=== PATIENT | female | born 1970 | race Caucasian/White ===

== ENCOUNTER 2017-01-09 17:33 | Emergency (ER) | payer OTHER ==
[2017-01-09] MEDS ORDERED: Sodium Chloride 0.9% 1000 ML 1,000 ML IV SCH ×2 (17:45→23:15)
--- NOTE | 2017-01-09 17:50 | ERPHSYRPT ---
- History of Present Illness Time Seen by Provider: 01/09/17 17:36 Source: family (), EMS Physician History: CC: unable to speak Hx: 46 y/o patient of Dr Briseno (neurology). She has hx of remote stroke causing left sided weakness as well as AICD. She has hx of 6 months intermittent spells in which she can not speak. These usually last a few minutes. She has had extensive workup thru [facility] including home EEG monitoring. No etiology identified. She had recent vomiting and her had diarrhea. Last night she was tired and she took her tizanidine. She had not taken her meds for a few days. Later in night she had beginning of one of her typical spells. It did not go away as usual. It continues this evening so called EMS. She is alert, no jerking, unable to form words. Seems to know what is going on and is able to move as usual. No fall or injury. No fever or chills. Timing/Duration: yesterday (evening) Severity: moderate Allergies/Adverse Reactions: Latex, Natural Rubber Allergy (Verified 01/09/17 19:08) venom-honey bee [bee venom (honey bee)] Allergy (Verified 01/09/17 19:08) Home Medications: Aspirin 81 gm Chew [Baby Aspirin 81 mg Chew] 81 mg PO DAILY 09/21/13 [ History] Carvedilol 12.5 mg [Coreg 12.5 mg] 25 mg PO BID 09/21/13 [History] Clopidogrel Bisulfate 75 mg [PLAVIX 75 MG Tablet] 75 mg PO DAILY 09/21/13 [History] Lisinopril 10 mg [Zestril 10 MG] 10 mg PO DAILY 09/21/13 [History] Tizanidine HCl 4 mg [Zanaflex 4 MG] 4 mg PO UD 09/11/16 [History] Topiramate 100 mg [Topamax 100 MG] 100 mg PO HS 09/11/16 [History] Cholecalciferol (Vitamin D3) [Vitamin D3] 5,000 unit PO DAILY 01/09/17 [History] Hx Tetanus, Diphtheria Vaccination/Date Given: Yes (1991) Hx Influenza Vaccination/Date Given: Yes (2011) Hx Pneumococcal Vaccination/Date Given: No - Review of Systems Constitutional: No Fever, No Chills Eyes: No Vision Changes Respiratory: No Cough, No Cyanosis Cardiac: Edema Abdominal/Gastrointestinal: Nausea, Vomiting All Other Systems: Unable due to condition - Past Medical History Pertinent Past Medical History: Yes Neurological History: Stroke ENT History: No Pertinent History Cardiac History: No Pertinent History Respiratory History: No Pertinent History Endocrine Medical History: No Pertinent History Musculoskeletal History: No Pertinent History GI Medical History: No Pertinent History Psycho-Social History: No Pertinent History Female Reproductive Disorders: No Pertinent History - Past Surgical History Past Surgical History: Yes Cardiac: Internal Defibrillator Female Surgical History: Section, Tubal Ligation - Social History Smoking Status: Former smoker Exposure to second hand smoke: Yes Drug Use: none Patient Lives Alone: No - Female History Hx Now: No - Nursing Vital Signs Nursing Vital Signs: Initial Vital Signs Temperature 99.2 F Temperature Source Rectal Pulse Rate 76 Respiratory Rate 24 Blood Pressure [] 111/59 Pain Intensity 0 - Physical Exam General Appearance: alert Eye Exam: PERRL/EOMI Cardiovascular Exam: regular rate/rhythm Gastrointestinal/Abdomen Exam: soft, No tenderness, No distention Neurologic Exam: alert, cooperative, other (does not form words, dry secretions in mouth, left sided arm and leg weakness with mild contractures, she moves right arm and leg, she is keenly alert, follows all commands, no tremor, able to communicate with hand squeeze and responds to questions appopriately regarding orientation. Denes pain. ) Skin Exam: pale, other (cool) Procedures - Central Line Central Line Lumen: triple Lumen Size: 7 Japanese Central Line Procedure: chlorahexadine prep, sterile drapes applied (full body) , sterile dressing applied, Aseptic Technique, Seldinger Technique Central Line Postion: femoral (R) Anesthesia: 1% Lidocaine cc's of anesthesia: 3 Ultrasound Guided Placement: Yes Complications: none Central Line Post Position: sutured, good blood return - Course Nursing assessment & vital signs reviewed: Yes EKG Interpreted by Me: RATE (87 pacemaker rhythm) - Radiology Exams cxr X-ray Interpretation: Reviewed by me (AICD, no pneumonia) - CT Exams head CT Interpretation: Tele-radiologist Report (stable old stroke, no acute changes) Ordered Tests: Active Orders 24 hr Category Date Time Status Human Resources Hr Generalist STAT Care 04/04/17 17:36 Active Cath for Specimen-Straight STAT Care 01/09/17 17:36 Active EKG-ER Only STAT Care 01/09/17 17:36 Active IV Insertion STAT Care 01/09/17 17:36 Active Pulse Oximetry (ED) STAT Care 01/09/17 17:36 Active CHEST 1 VIEW (PORTABLE) Stat Exams 01/09/17 17:37 Taken HEAD WITHOUT CONTRAST [CT] Stat Exams 01/09/17 17:37 Taken CBC W DIFF Stat Lab 01/09/17 18:53 Completed CK-Creatinine Phosphokinase Stat Lab 01/09/17 18:53 Completed CMP Stat Lab 01/09/17 18:53 Completed Ethyl Alcohol,Urine Stat Lab 01/09/17 19:52 Completed Lactic Acid Urgent Lab 01/09/17 17:36 Completed Lactic Acid Urgent Lab 01/09/17 20:37 Completed MAGNESIUM Stat Lab 01/09/17 18:53 Completed Manual Differential NC Stat Lab 01/09/17 18:53 Completed UA W/ MICROSCOPIC Stat Lab 01/09/17 19:52 Completed Urine Triage Profile Stat Lab 01/09/17 19:52 Completed VENOUS BLOOD GAS Stat Lab 01/09/17 21:10 Completed VENOUS BLOOD GAS Urgent Lab 01/09/17 17:36 Completed Medication Summary Generic Name Dose Route Start Last Admin Trade Name Freq PRN Reason Stop Dose Admin Sodium Chloride 1,000 mls @ 100 mls/hr 01/09/17 17:45 Sodium Chloride 0.9% 1000 Ml IV 02/08/17 17:44 .Q10H LETICIA Discontinued Medications Generic Name Dose Route Start Last Admin Trade Name Freq PRN Reason Stop Dose Admin Ceftriaxone Sodium/Dextrose 50 mls @ 100 mls/hr 01/09/17 19:05 Rocephin 1 Gm-D5w 50 Ml Bag IV 01/09/17 19:34 STAT ONE Sodium Chloride 1,000 mls @ 999 mls/hr 01/09/17 19:47 01/09/17 20:57 Sodium Chloride 0.9% 1000 Ml IV 01/09/17 20:47 999 mls/hr .Q1H1M STA Administration Ceftriaxone Sodium/Dextrose Confirm 01/09/17 19:47 Rocephin 1 Gm-D5w 50 Ml Bag Administered 01/09/17 19:48 Dose 50 mls @ ud IV .STK-MED ONE Sodium Chloride 1,000 mls @ 999 mls/hr 01/09/17 20:37 01/09/17 21:13 Sodium Chloride 0.9% 1000 Ml IV 01/09/17 21:37 999 mls/hr .Q1H1M STA Administration Sodium Chloride 1,000 mls @ 999 mls/hr 01/09/17 20:37 Sodium Chloride 0.9% 1000 Ml IV 01/09/17 21:37 .Q1H1M STA Aztreonam 100 mls @ 100 mls/hr 01/09/17 20:50 01/09/17 21:14 Azactam 1 Gm/100 Ml D5w IV 01/09/17 21:49 100 mls/hr STAT ONE Administration Lorazepam 1 mg 01/09/17 18:51 Ativan 2 Mg/1 Ml Vial IV 01/09/17 18:52 STAT ONE Lab/Rad Data: Laboratory Result Diagrams 01/09/17 18:53 01/09/17 18:53 Laboratory Results 01/09/17 01/09/17 01/09/17 Range/Units 21:10 20:37 19:52 WBC (4.0-10.5) K/mm3 RBC (4.1-5.4) M/mm3 Hgb (12.0-16.0) gm/dl Hct (35-47) % MCV (78-100) fl MCH (26-32) pg MCHC (32-36) g/dl RDW (11.5-14.0) % Plt Count (150-450) K/mm3 MPV (6-9.5) fl Segmented Neutrophils (36.0-66.0) % Lymphocytes (Manual) (24-44) % Monocytes (Manual) (0.0-12.0) % Eosinophils (Manual) (0.00-3.0) % Differential Comment Platelet Estimate (NORMAL) Polychromasia Anisocytosis VBG pH 7.43 H (7.32-7.42) VBG pCO2 at Pat Temp 42 (42-55) mm/Hg VBG pO2 at Pat Temp 31 (25-40) mm/Hg VBG HCO3 27.9 (22-28) meq/L VBG O2 Sat (Rocky) 66.6 L (95-100) VBG Base Excess 3.2 H (-2.0-2.0) VBG Hemoglobin 12.5 VBG Carboxyhemoglobin 2.9 (0.0-6.9) % T HGB POC Potassium 3.4 L (3.5-5.1) Sodium (136-145) mEq/L Potassium (3.5-5.1) mEq/L Chloride (98-107) mEq/L Carbon Dioxide (21-32) mEq/L Anion Gap (5-15) MEQ/L BUN (9-20) mg/dL Creatinine (0.55-1.30) mg/dl Estimated GFR ML/MIN Glucose (70-110) MG/DL Lactic Acid 1.3 (0.4-2.0) Calcium (8.5-10.1) mg/dL Magnesium (1.8-2.4) mg/dL Total Bilirubin (0.2-1.0) mg/dL AST (15-37) U/L ALT (12-78) U/L Alkaline Phosphatase (46-116) U/L Creatine Kinase (26-192) U/L Serum Total Protein (6.4-8.2) gm/dL Albumin (3.4-5.0) g/dL Ur Collection Type Urine Color (YELLOW) Urine Appearance (CLEAR) Urine pH (5-6) Ur Specific Chelsea (1.005-1.025) Urine Protein (Negative) Urine Glucose (UA) (NEGATIVE) mg/dL Urine Ketones (NEGATIVE) Urine Nitrite (NEGATIVE) Urine Bilirubin (NEGATIVE) Urine Urobilinogen (0-1) mg/dL Urine WBC (Auto) (NEGATIVE) Urine RBC (Auto) (0-5) Reinaldo/ul Urine Microscopic RBC (0-2) /HPF Urine Microscopic WBC (0-5) /HPF Ur Epithelial Cells (FEW) /HPF Amorphous Crystals (NEGATIVE) /HPF Urine Bacteria (NEGATIVE) /HPF Urine Mucus (NEGATIVE) /HPF Urine Opiates Level NEG. (NEGATIVE) Ur Methadone NEG. (NEGATIVE) Urine Barbiturates NEG. (NEGATIVE) Ur Phencyclidine (PCP) NEG. (NEGATIVE) Urine Amphetamine NEG. (NEGATIVE) U Benzodiazepine Level NEG. (NEGATIVE) Urine Cocaine NEG. (NEGATIVE) Urine Marijuana (THC) NEG. (NEGATIVE) Urine Ethyl Alcohol (0.00-20) mg/dl Specimen Received 0401/09/17 01/09/17 Range/Units 19:52 19:52 18:53 WBC (4.0-10.5) K/mm3 RBC (4.1-5.4) M/mm3 Hgb (12.0-16.0) gm/dl Hct (35-47) % MCV (78-100) fl MCH (26-32) pg MCHC (32-36) g/dl RDW (11.5-14.0) % Plt Count (150-450) K/mm3 MPV (6-9.5) fl Segmented Neutrophils (36.0-66.0) % Lymphocytes (Manual) (24-44) % Monocytes (Manual) (0.0-12.0) % Eosinophils (Manual) (0.00-3.0) % Differential Comment Platelet Estimate (NORMAL) Polychromasia Anisocytosis VBG pH (7.32-7.42) VBG pCO2 at Pat Temp (42-55) mm/Hg VBG pO2 at Pat Temp (25-40) mm/Hg VBG HCO3 (22-28) meq/L VBG O2 Sat (Rocky) (95-100) VBG Base Excess (-2.0-2.0) VBG Hemoglobin VBG Carboxyhemoglobin (0.0-6.9) % T HGB POC Potassium (3.5-5.1) Sodium 141 (136-145) mEq/L Potassium 4.0 (3.5-5.1) mEq/L Chloride 103 (98-107) mEq/L Carbon Dioxide 28.0 (21-32) mEq/L Anion Gap 14.1 (5-15) MEQ/L BUN 33 H (9-20) mg/dL Creatinine 1.89 H (0.55-1.30) mg/dl Estimated GFR 30 ML/MIN Glucose 96 (70-110) MG/DL Lactic Acid (0.4-2.0) Calcium 10.1 (8.5-10.1) mg/dL Magnesium 2.0 (1.8-2.4) mg/dL Total Bilirubin 1.0 (0.2-1.0) mg/dL AST 53 H (15-37) U/L ALT 39 (12-78) U/L Alkaline Phosphatase 108 (46-116) U/L Creatine Kinase 363 H (26-192) U/L Serum Total Protein 7.3 (6.4-8.2) gm/dL Albumin 2.9 L (3.4-5.0) g/dL Ur Collection Type CATH Urine Color DARK YELLOW (YELLOW) Urine Appearance CLOUDY (CLEAR) Urine pH 6.0 6.0 (5-6) Ur Specific Chelsea 1.015 (1.005-1.025) Urine Protein 100 (Negative) Urine Glucose (UA) NEGATIVE (NEGATIVE) mg/dL Urine Ketones NEGATIVE (NEGATIVE) Urine Nitrite POSITIVE (NEGATIVE) Urine Bilirubin SMALL (NEGATIVE) Urine Urobilinogen 1 (0-1) mg/dL Urine WBC (Auto) LARGE (NEGATIVE) Urine RBC (Auto) LARGE (0-5) Reinaldo/ul Urine Microscopic RBC >100 (0-2) /HPF Urine Microscopic WBC >100 (0-5) /HPF Ur Epithelial Cells MODERATE (FEW) /HPF Amorphous Crystals FEW (NEGATIVE) /HPF Urine Bacteria PACKED (NEGATIVE) /HPF Urine Mucus MODERATE (NEGATIVE) /HPF Urine Opiates Level (NEGATIVE) Ur Methadone (NEGATIVE) Urine Barbiturates (NEGATIVE) Ur Phencyclidine (PCP) (NEGATIVE) Urine Amphetamine (NEGATIVE) U Benzodiazepine Level (NEGATIVE) Urine Cocaine (NEGATIVE) Urine Marijuana (THC) (NEGATIVE) Urine Ethyl Alcohol 3 (0.00-20) mg/dl Specimen Received 01/09/1701/09/17 01/09/17 Range/Units 18:53 17:36 WBC 23.7 H (4.0-10.5) K/mm3 RBC 4.78 (4.1-5.4) M/mm3 Hgb 13.5 (12.0-16.0) gm/dl Hct 41.6 (35-47) % MCV 87.0 (78-100) fl MCH 28.2 (26-32) pg MCHC 32.5 (32-36) g/dl RDW 16.3 H (11.5-14.0) % Plt Count 230 (150-450) K/mm3 MPV 10.8 H (6-9.5) fl Segmented Neutrophils 76 H (36.0-66.0) % Lymphocytes (Manual) 15 L (24-44) % Monocytes (Manual) 8 (0.0-12.0) % Eosinophils (Manual) 1 (0.00-3.0) % Differential Comment ABNORMAL Platelet Estimate NORMAL (NORMAL) Polychromasia 1+ Anisocytosis 1+ VBG pH 7.51 H (7.32-7.42) VBG pCO2 at Pat Temp 37 L (42-55) mm/Hg VBG pO2 at Pat Temp 35 (25-40) mm/Hg VBG HCO3 29.5 H* (22-28) meq/L VBG O2 Sat (Rocky) 73.8 L (95-100) VBG Base Excess 6.2 H (-2.0-2.0) VBG Hemoglobin 14.4 VBG Carboxyhemoglobin 4.4 (0.0-6.9) % T HGB POC Potassium 3.8 (3.5-5.1) Sodium (136-145) mEq/L Potassium (3.5-5.1) mEq/L Chloride (98-107) mEq/L Carbon Dioxide (21-32) mEq/L Anion Gap (5-15) MEQ/L BUN (9-20) mg/dL Creatinine (0.55-1.30) mg/dl Estimated GFR ML/MIN Glucose (70-110) MG/DL Lactic Acid 1.7 (0.4-2.0) Calcium (8.5-10.1) mg/dL Magnesium (1.8-2.4) mg/dL Total Bilirubin (0.2-1.0) mg/dL AST (15-37) U/L ALT (12-78) U/L Alkaline Phosphatase (46-116) U/L Creatine Kinase (26-192) U/L Serum Total Protein (6.4-8.2) gm/dL Albumin (3.4-5.0) g/dL Ur Collection Type Urine Color (YELLOW) Urine Appearance (CLEAR) Urine pH (5-6) Ur Specific Chelsea (1.005-1.025) Urine Protein (Negative) Urine Glucose (UA) (NEGATIVE) mg/dL Urine Ketones (NEGATIVE) Urine Nitrite (NEGATIVE) Urine Bilirubin (NEGATIVE) Urine Urobilinogen (0-1) mg/dL Urine WBC (Auto) (NEGATIVE) Urine RBC (Auto) (0-5) Reinaldo/ul Urine Microscopic RBC (0-2) /HPF Urine Microscopic WBC (0-5) /HPF Ur Epithelial Cells (FEW) /HPF Amorphous Crystals (NEGATIVE) /HPF Urine Bacteria (NEGATIVE) /HPF Urine Mucus (NEGATIVE) /HPF Urine Opiates Level (NEGATIVE) Ur Methadone (NEGATIVE) Urine Barbiturates (NEGATIVE) Ur Phencyclidine (PCP) (NEGATIVE) Urine Amphetamine (NEGATIVE) U Benzodiazepine Level (NEGATIVE) Urine Cocaine (NEGATIVE) Urine Marijuana (THC) (NEGATIVE) Urine Ethyl Alcohol (0.00-20) mg/dl Specimen Received - Progress Progress Note: 01/09/17 17:51 Testing ordered. Spoke to . Sent for [facility] old records. Paged Dr Rodriguez. ? TIA syndrome, seizure, dystonia. 01/09/17 18:57 Very difficult IV access. Nurse obtained IV in left breast area. Blood drawn right brachial artery using sono guidance. Poor venous targets. Spoke to Dr Rodriguez and she advised ok to try ativan. Appears nonemergent. Pt can be admitted at [facility] for neuro consult, MRI, EEG again. Pt and family desire [facility] for admission. 01/09/17 20:39 Pt had poor IV access. She had episodes of hypotension and some mottled skin. Right femoral line placed with permission from . IVF bolus in progress. LActic ok but she appears septic. Abtx started. Cultures sent. Will work on transfer to [facility]. 01/09/17 20:51 SEPSIS REASSESSMENT: HR 112 RR 24 BP 94/26 Sat 97% Temp 98.3 Ax. Pt alert, dysarthric but repsonds. Heart regular. Lungs diminished but clear. Skin mottled, pale and cool. Radial pulses thready and almost nonpalpable. DP pulse 1+. Called [facility] call to arrange transfer to hospitalist service at patient and family's request. 01/09/17 21:51 Spoke to [facility] [employer] Sarah Amador as no response from transfer center. There was some mix up about primary care provider. states primary doctor is Dr Anette Robb. She is attempting to contact hospitalist. 01/09/17 22:11 Spoke to Sarah Amador. She conferenced with hospitalist Dr Membreno. Spoke to Dr Membreno who accepts transfer to [facility]. 01/09/17 22:14 Current BP 109/70. Counseled pt/family regarding: lab results, diagnosis, need for follow-up, rad results - Departure Time of Disposition: 22:13 Departure Disposition: Transfer ([facility]) Clinical Impression: Dysarthria, Hx stroke, Septic shock Condition: Serious Critical Care Time: Yes Critical Care Time(excluding separately billable procedures): 75-104 minutes Referrals: ANETTE ROBB MD [Primary Care Provider] -
[2017-01-09] MEDS ORDERED: Sodium Chloride 0.9% 1000 ML 1,000 ML ONE ×4 (18:45→21:03)
[2017-01-09] MEDS ORDERED: Ativan 2 MG/1 ML VIAL IV ONE (18:51)
[2017-01-09 18:57] LABS: Lactic Acid 1.7 (0.4-2.0); VBG BASE EXCESS 6.2 (-2.0-2.0); VBG CARBOXYHEMOGLOBIN 4.4 % T HGB (0.0-6.9); VBG HCO3- 29.5 meq/L (22-28); VBG HEMOGLOBIN 14.4; VBG O2 SATURATION 73.8 (95-100); VBG POTASSIUM 3.8 (3.5-5.1); VBG pH 7.51 (7.32-7.42)
[2017-01-09 18:59] LABS: Mean Corpuscular Hemoglobin 28.2 pg (26-32); Mean Platelet Volume 10.8 fl (6-9.5); Platelet Count 230 K/mm3 (150-450); Red Blood Count 4.78 M/mm3 (4.1-5.4); Red Cell Distribution Width 16.3 % (11.5-14.0); White Blood Count 23.7 K/mm3 (4.0-10.5)
[2017-01-09] MEDS ORDERED: ROCEPHIN 1 Gm-D5w 50 ml Bag** 50 ML IV ONE ×2 (19:05→19:47)
[2017-01-09 19:22] LABS: ALBUMIN 2.9 g/dL (3.4-5.0); ANION GAP 14.1 MEQ/L (5-15); Total Protein 7.3 gm/dL (6.4-8.2)
[2017-01-09] MEDS ORDERED: Sodium Chloride 0.9% 1000 ML 1,000 ML IV STA ×4 (19:47→23:02)
[2017-01-09 19:52] LABS: Eosinophil 1 % (0.00-3.0); Total Cells Counted 100
[2017-01-09 19:53] LABS: ANISOCYTOSIS 1+; Platelet Estimate NORMAL (NORMAL); Polychromasia 1+
[2017-01-09 20:04] LABS: COMPLETE URINE MICROSCOPIC? YES; Collection Type CATH
[2017-01-09 20:05] LABS: Bacteria PACKED /HPF (NEGATIVE); Epithelial Cells MODERATE /HPF (FEW); Mucus MODERATE /HPF (NEGATIVE); WBC >100 /HPF (0-5)
[2017-01-09] MEDS ORDERED: Azactam 1 GM/100 ML D5W 100 ML IV ONE (20:50)
[2017-01-09 21:18] LABS: VBG BASE EXCESS 3.2 (-2.0-2.0); VBG CARBOXYHEMOGLOBIN 2.9 % T HGB (0.0-6.9); VBG HCO3- 27.9 meq/L (22-28); VBG HEMOGLOBIN 12.5; VBG O2 SATURATION 66.6 (95-100); VBG POTASSIUM 3.4 (3.5-5.1); VBG pH 7.43 (7.32-7.42)
[2017-01-09] MEDS ORDERED: Sodium Chloride 0.9% 1000 ML 2,000 ML ONE (22:16)
[2017-01-09 23:38] VITALS: BP 91/52; PULSE 102; O2SAT 95
--- NOTE | 2017-01-10 08:39 | XRAY ---
Indication: Slurred speech, aphasia, and dilated pupils. Sepsis. Multiple contiguous axial images obtained through the head without contrast. Comparison: September 21, 2016. Stable large old right cerebral infarct and left posterior centrum semi-ovale degenerative micro-ischemia. Again no acute intracranial hemorrhage, hydrocephalus, or mass effect. Fourth ventricle is midline. Bony calvarium intact. Visualized paranasal sinuses and mastoid air cells are pneumatized and clear. Impression: 1. No new/acute intracranial abnormalities. 2. Stable old right cerebral hemispheric infarct and degenerative micro-ischemia. CT DI 59.47
--- NOTE | 2017-01-10 08:58 | XRAY ---
Indication: A fascia. Possible sepsis. Comparison: None Portable chest is clear. Heart is not enlarged with presence of a left-sided AICD. Vascularity normal. Bony thorax intact. Impression: Radiographically nonacute chest.
== END 2017-01-10 00:40 | disposition short-term general hospital (02) ==
LOC: ED 17:33
DX: R47.1 Dysarthria and anarthria (principal); R65.21 Severe sepsis with septic shock; Z86.73 Personal history of transient ischemic attack (TIA), and cerebral infarction without residual deficits; I69.354 Hemiplegia and hemiparesis following cerebral infarction affecting left non-dominant side; Z79.899 Other long term (current) drug therapy
CPT/HCPCS: 36000; 36415; 51702; 70450; 71010; 80053; 80307; 80320; 81000; 82550; 82805; 83605; 83735; 83986; 85025; 93005; 93041; 96360; 96361; 96365; 96367; 99285; 99291; 99292; J0696; P9612

== ENCOUNTER 2017-05-16 14:43 | Emergency (ER) | payer OTHER ==
--- NOTE | 2017-05-16 15:14 | ERPHSYRPT ---
- History of Present Illness Time Seen by Provider: 05/16/17 15:08 Source: EMS Exam Limitations: clinical condition Patient Subjective Stated Complaint: Medics states "her called and stated she is confused. She has answered all of our questions correctly." Triage Nursing Assessment: Pt able to answer some questions questions but repeats herself. often. pt left side is weak. Pt Hx of 3 previous strokes. able to speak in full sentences. left facial droop as well. Physician History: The patient is a 46-year-old female brought in by ambulance from home. Ambulance reports that they were called because she was confused. The boyfriend told the ambulance crew that she may have UTI and needs to be seen. The patient has low mental functioning ability but does answer questions. Her boyfriend is not here at this time. The patient states that the boyfriend called the ambulance. She does not know why he called the ambulance. Her past medical history is significant for a stroke with left-sided upper extremity deficit. She has a Lewis catheter in place. She also has GERD, CHF, and headaches. Timing/Duration: today Severity: mild Modifying Factors: Improves With: nothing Associated Symptoms: denies symptoms Allergies/Adverse Reactions: Latex, Natural Rubber Allergy (Verified 05/16/17 15:08) venom-honey bee [bee venom (honey bee)] Allergy (Verified 05/16/17 15:08) Home Medications: Aspirin 81 gm Chew [Baby Aspirin 81 mg Chew] 81 mg PO DAILY 09/21/13 [ History] Carvedilol 12.5 mg [Coreg 12.5 mg] 25 mg PO BID 09/21/13 [History] Clopidogrel Bisulfate 75 mg [PLAVIX 75 MG Tablet] 75 mg PO DAILY 09/21/13 [History] Tizanidine HCl 4 mg [Zanaflex 4 MG] 4 mg PO UD 09/11/16 [History] Topiramate 100 mg [Topamax 100 MG] 100 mg PO HS 09/11/16 [History] Cholecalciferol (Vitamin D3) [Vitamin D3] 5,000 unit PO DAILY 01/09/17 [History] Baclofen 10 mg [Lioresal 10 mg] 10 mg PO TID 05/16/17 [History] Famotidine 20 mg [Pepcid 20 MG] 20 mg PO DAILY 05/16/17 [History] Imipramine HCl 50 mg PO HS 05/16/17 [History] Midodrine HCl 5 mg [Proamatine 5 mg] 5 mg PO TID 05/16/17 [History] Potassium Chloride 10 Meq Tab* [Klor Con 10 MEQ] 10 meq PO BID 05/16/17 [ History] Sodium Bicarbonate 650 mg PO BID 05/16/17 [History] Hx Tetanus, Diphtheria Vaccination/Date Given: Yes Hx Influenza Vaccination/Date Given: Yes Hx Pneumococcal Vaccination/Date Given: Yes Immunizations Up to Date: Yes - Review of Systems Constitutional: No Fever, No Chills Eyes: No Symptoms Ears, Nose, & Throat: No Symptoms Respiratory: No Cough, No Dyspnea Cardiac: No Chest Pain, No Edema, No Syncope Abdominal/Gastrointestinal: No Abdominal Pain, No Nausea, No Vomiting, No Diarrhea Genitourinary Symptoms: No Dysuria Musculoskeletal: No Back Pain, No Neck Pain Skin: No Rash Neurological: Other (confusion) Psychological: No Symptoms Endocrine: No Symptoms Hematologic/Lymphatic: No Symptoms Immunological/Allergic: No Symptoms All Other Systems: Reviewed and Negative - Past Medical History Pertinent Past Medical History: Yes Neurological History: Stroke ENT History: No Pertinent History Cardiac History: No Pertinent History Respiratory History: No Pertinent History Endocrine Medical History: No Pertinent History Musculoskeletal History: No Pertinent History GI Medical History: No Pertinent History Psycho-Social History: No Pertinent History Female Reproductive Disorders: No Pertinent History - Past Surgical History Past Surgical History: Yes Cardiac: Internal Defibrillator Female Surgical History: Section, Tubal Ligation - Social History Smoking Status: Never smoker Exposure to second hand smoke: No Drug Use: none Patient Lives Alone: No - Female History Hx Last Menstrual Period: unknown Hx Now: No - Nursing Vital Signs Nursing Vital Signs: Initial Vital Signs Temperature 97.9 F 05/16/17 14:44 Pulse Rate 74 05/16/17 14:44 Respiratory Rate 16 05/16/17 14:44 Blood Pressure 104/52 05/16/17 14:44 O2 Sat by Pulse Oximetry 94 L 05/16/17 14:44 Pain Scale Pain Intensity 0 - Physical Exam General Appearance: no apparent distress, alert Eye Exam: PERRL/EOMI (Examination of the eyes reveals the left pupil slightly larger than the right. Both pupils accommodate to light.), eyes nml inspection Ears, Nose, Throat Exam: normal ENT inspection, TMs normal, pharynx normal, moist mucous membranes Neck Exam: normal inspection, non-tender, supple, full range of motion Respiratory Exam: normal breath sounds, lungs clear, No respiratory distress Cardiovascular Exam: regular rate/rhythm, normal heart sounds, normal peripheral pulses Gastrointestinal/Abdomen Exam: soft, normal bowel sounds, No tenderness, No mass Pelvic Exam: not done Rectal Exam: not done Back Exam: normal inspection, normal range of motion, No CVA tenderness, No vertebral tenderness Extremity Exam: normal inspection, normal range of motion, pelvis stable Neurologic Exam: cooperative Skin Exam: normal color, warm, dry, No rash Lymphatic Exam: No adenopathy SpO2 Interpretation: normal SpO2: 94 Oxygen Delivery: Room Air - CT Exams Head CT Interpretation: Tele-radiologist Report, Other (No new infarct or acute intracranial bleed. Large right cerebral infarct, aging older infarct per Dr Bobby.) Ordered Tests: Active Orders 24 hr Category Date Time Status IV Insertion STAT Care 05/16/17 15:14 Active HEAD WITHOUT CONTRAST [CT] Stat Exams 05/16/17 15:15 Completed CBC W DIFF Stat Lab 05/16/17 15:58 Completed CMP Stat Lab 05/16/17 15:58 Completed CULTURE,URINE Stat Lab 05/16/17 16:30 Received Lactic Acid Stat Lab 05/16/17 15:14 Completed Manual Differential NC Stat Lab 05/16/17 15:58 Completed PROTIME WITH INR Stat Lab 05/16/17 15:58 Completed UA W/ MICROSCOPIC Stat Lab 05/16/17 16:30 Completed Lab/Rad Data: Laboratory Result Diagrams 05/16/17 15:58 05/16/17 15:58 Laboratory Results 05/16/17 05/16/17 05/16/17 Range/Units 16:30 15:58 15:58 WBC (4.0-10.5) K/mm3 RBC (4.1-5.4) M/mm3 Hgb (12.0-16.0) gm/dl Hct (35-47) % MCV (78-100) fl MCH (26-32) pg MCHC (32-36) g/dl RDW (11.5-14.0) % Plt Count (150-450) K/mm3 MPV (6-9.5) fl Segmented Neutrophils (36.0-66.0) % Lymphocytes (Manual) (24-44) % Monocytes (Manual) (0.0-12.0) % Eosinophils (Manual) (0.00-3.0) % Differential Comment Platelet Estimate (NORMAL) INR 1.18 (0.8-3.0) Sodium 143 (136-145) mEq/L Potassium 3.6 (3.5-5.1) mEq/L Chloride 107 (98-107) mEq/L Carbon Dioxide 23.7 (21-32) mEq/L Anion Gap 15.9 H (5-15) MEQ/L BUN 22 H (9-20) mg/dL Creatinine 2.50 H (0.55-1.30) mg/dl Estimated GFR 22 ML/MIN Glucose 133 H (70-110) MG/DL Lactic Acid (0.4-2.0) Calcium 10.0 (8.5-10.1) mg/dL Total Bilirubin 0.50 (0.2-1.0) mg/dL AST 36 (15-37) U/L ALT 28 (12-78) U/L Alkaline Phosphatase 132 H (46-116) U/L Serum Total Protein 8.2 (6.4-8.2) gm/dL Albumin 3.2 L (3.4-5.0) g/dL Ur Collection Type CATH Urine Color YELLOW (YELLOW) Urine Appearance CLOUDY (CLEAR) Urine pH 5.0 (5-6) Ur Specific [place] 1.015 (1.005-1.025) Urine Protein 100 (Negative) Urine Ketones NEGATIVE (NEGATIVE) Urine Blood 250 (0-5) Reinaldo/ul Urine Nitrite POSITIVE (NEGATIVE) Urine Bilirubin NEGATIVE (NEGATIVE) Urine Urobilinogen NORMAL (0-1) mg/dL Ur Leukocyte Esterase 2+ (NEGATIVE) Urine Microscopic RBC 25-50 (0-2) /HPF Urine Microscopic WBC 50-100 (0-5) /HPF Urine Bacteria MODERATE (NEGATIVE) /HPF Hyaline Casts 0-2 (0-2) /LPF Urine Glucose NEGATIVE (NEGATIVE) mg/dL Specimen Received 05/16/17 1630 05/16/17 05/16/17 Range/Units 15:58 15:14 WBC 15.7 H (4.0-10.5) K/mm3 RBC 4.35 (4.1-5.4) M/mm3 Hgb 11.7 L (12.0-16.0) gm/dl Hct 36.8 (35-47) % MCV 84.6 (78-100) fl MCH 26.8 (26-32) pg MCHC 31.8 L (32-36) g/dl RDW 17.1 H (11.5-14.0) % Plt Count 408 (150-450) K/mm3 MPV 10.2 H (6-9.5) fl Segmented Neutrophils 73 H (36.0-66.0) % Lymphocytes (Manual) 22 L (24-44) % Monocytes (Manual) 4 (0.0-12.0) % Eosinophils (Manual) 1 (0.00-3.0) % Differential Comment NORMAL Platelet Estimate NORMAL (NORMAL) INR (0.8-3.0) Sodium (136-145) mEq/L Potassium (3.5-5.1) mEq/L Chloride (98-107) mEq/L Carbon Dioxide (21-32) mEq/L Anion Gap (5-15) MEQ/L BUN (9-20) mg/dL Creatinine (0.55-1.30) mg/dl Estimated GFR ML/MIN Glucose (70-110) MG/DL Lactic Acid 0.9 (0.4-2.0) Calcium (8.5-10.1) mg/dL Total Bilirubin (0.2-1.0) mg/dL AST (15-37) U/L ALT (12-78) U/L Alkaline Phosphatase (46-116) U/L Serum Total Protein (6.4-8.2) gm/dL Albumin (3.4-5.0) g/dL Ur Collection Type Urine Color (YELLOW) Urine Appearance (CLEAR) Urine pH (5-6) Ur Specific [place] (1.005-1.025) Urine Protein (Negative) Urine Ketones (NEGATIVE) Urine Blood (0-5) Reinaldo/ul Urine Nitrite (NEGATIVE) Urine Bilirubin (NEGATIVE) Urine Urobilinogen (0-1) mg/dL Ur Leukocyte Esterase (NEGATIVE) Urine Microscopic RBC (0-2) /HPF Urine Microscopic WBC (0-5) /HPF Urine Bacteria (NEGATIVE) /HPF Hyaline Casts (0-2) /LPF Urine Glucose (NEGATIVE) mg/dL Specimen Received - Progress Progress: unchanged Discussed with DrKala: Other (Dr Fink) Counseled pt/family regarding: lab results, diagnosis, rad results - Departure Time of Disposition: 17:32 Departure Disposition: Transfer (Transfer to [facility] per Dr Fink.) Clinical Impression: Altered mental status, UTI (urinary tract infection) Condition: Stable Critical Care Time: No Additional Instructions: You have altered mental status and a UTI. You're being transferred to [facility] per Dr. Fink. You were given Rocephin 1 g by IV in the ER.
[2017-05-16 16:06] LABS: Mean Cell Volume 84.6 fl (78-100); Mean Platelet Volume 10.2 fl (6-9.5); Platelet Count 408 K/mm3 (150-450); Red Blood Count 4.35 M/mm3 (4.1-5.4); Red Cell Distribution Width 17.1 % (11.5-14.0); White Blood Count 15.7 K/mm3 (4.0-10.5)
--- NOTE | 2017-05-16 16:09 | XRAY ---
Exam: CT of the head without IV contrast from 05/16/2017. CTDI: 69.79 Comparison: CT of the head without IV contrast from 01/09/2017. Indication: Confusion, consider stroke. Findings: Non-IV contrast axial images were obtained through the brain. Reconstructed coronal and sagittal images were created and reviewed. I again see a stable large right cerebral infarct with some peripheral cortical sparing within the lower aspect of the right cerebrum and the upper posterior aspect of the right cerebrum. I believe there is a bit more pronounced peripheral low-attenuation density within the posterior right parietal area as compared to the prior exam of 01/09/2017. For example, see axial image #24 as compared to axial image #24 from 01/09/2017. This probably relates to an older infarct which is taken on more decreased attenuation. This area was abnormal on the exam of 01/09/2017 as well. I see no evidence of new infarct. No acute intracranial bleed or abnormal extra-axial fluid collection is seen. There is some ipsilateral enlargement of the right lateral ventricle as compared to the left lateral ventricle representing the sequela of the large old right cerebral infarct. The third ventricle is prominent, but unchanged. Structures of the posterior fossa appear unremarkable. Some focal decreased attenuation within the upper posterior left cerebral convexity is seen which is unchanged and believed to be due to chronic microvascular disease. The calvarium of the skull appears intact. There appears to be some hyperostosis frontalis interna. The visualized paranasal sinuses and mastoid air cells appear clear representing no change. Impression: 1. I again see a large right cerebral infarct. A small portion of this infarct within the posterior right parietal lobe has taken on further decreased attenuation as compared to 01/09/2017 which suggests an aging older infarct. If further evaluation is needed, correlation with a MRI of the brain with diffusion-weighted imaging could be considered. 2. No definite new infarct or acute intracranial bleed is seen.
[2017-05-16 16:12] LABS: Mean Corpuscular Hemoglobin 26.8 pg (26-32)
[2017-05-16 16:20] LABS: INR 1.18 (0.8-3.0); PROTIME 13.3 SECONDS (9.95-12.35)
[2017-05-16 16:28] LABS: ALBUMIN 3.2 g/dL (3.4-5.0); ANION GAP 15.9 MEQ/L (5-15); BILIRUBIN,TOTAL 0.5 mg/dL (0.2-1.0); Carbon Dioxide 23.7 mEq/L (21-32); Potassium 3.6 mEq/L (3.5-5.1); Total Protein 8.2 gm/dL (6.4-8.2)
[2017-05-16 16:44] LABS: Collection Type CATH
[2017-05-16 16:58] LABS: ADD URINE CULTURE? YES (NO); Bilirubin NEGATIVE (NEGATIVE); Blood 250 Ery/ul (0-5); COMPLETE URINE MICROSCOPIC? YES; Glucose NEGATIVE (NEGATIVE); Leukocyte Esterase 2+ (NEGATIVE)
[2017-05-16 17:02] LABS: Bacteria MODERATE /HPF (NEGATIVE); WBC 50-100 /HPF (0-5)
[2017-05-16 17:03] LABS: Hyaline Casts 0-2 /LPF (0-2)
[2017-05-16 17:10] LABS: Eosinophil 1 % (0.00-3.0); Platelet Estimate NORMAL (NORMAL); Total Cells Counted 100
[2017-05-16] MEDS ORDERED: ROCEPHIN 1 Gm-D5w 50 ml Bag** 1 G/50 ML IVPB IV STA (17:31)
[2017-05-16] MEDS ORDERED: ROCEPHIN 1 Gm-D5w 50 ml Bag** 1 G/50 ML IVPB IV ONE (17:58)
[2017-05-16 18:26] VITALS: PULSE 71; O2SAT 97
[2017-05-16 18:46] VITALS: BP 92/38
[2017-05-16] MEDS ORDERED: Sodium Chloride 0.9% 1000 ML 1,000 ML ONE (18:46)
[2017-05-16] MEDS ORDERED: Sodium Chloride 0.9% 1000 ML 1,000 ML IV SCH (19:00)
== END 2017-05-16 19:18 | disposition short-term general hospital (02) ==
LOC: ED 14:43
DX: R41.82 Altered mental status, unspecified (principal); N39.0 Urinary tract infection, site not specified; I50.9 Heart failure, unspecified; R41.0 Disorientation, unspecified; I25.2 Old myocardial infarction; Z79.899 Other long term (current) drug therapy
CPT/HCPCS: 36000; 36415; 70450; 80053; 81000; 83605; 85025; 85610; 87040; 87077; 87086; 87186; 96360; 99285; J0696